=== PATIENT | female | born 1990 | race Caucasian/White ===

== ENCOUNTER 2016-10-20 12:03 | Emergency (ER) | payer OTHER ==
[~2016-10-20] VITALS: Ht 165.1 cm; Wt 75.0 kg
[~2016-10-20 12:03] MED LIST: AMBIEN 10MG10 MG PO; ASPIRIN 32325 MG/TAB PO; BENADRYL25 M2 PO; DEPO-PROVE150 MG/1 M IM; FLAGYL500 MG PO; KLONOPIN 1MG1 MG PO; MELATONIN5 M1 SL; MINIPRESS2 MG PO; NEURONTIN100 MG/CAP PO; NEURONTIN600 MG/TAB PO; PERCOCET 325 MG1 TA2 PO; REMERON 15M15 MG/TA1 PO; ROXICODONE 55 MG/TAB PO; SEROQUEL 2525 MG/TAB PO; TOPROL XL 25MG25 MG PO; VISTARIL50 MG PO
[2016-10-20 12:12] VITALS: BP 112/76; TEMP 97.9
[2016-10-20] MEDS ORDERED: TYLENOL W/COD1 UDTAB PO (13:05)
[2016-10-20 13:28] VITALS: PULSE 75
== END 2016-10-20 13:29 | disposition home or self-care (01) ==
LOC: COL.ER 12:03
DX: S90.32XA Contusion of left foot, initial encounter (principal); S90.02XA Contusion of left ankle, initial encounter; Z89.432 Acquired absence of left foot; W10.9XXA Fall (on) (from) unspecified stairs and steps, initial encounter; Y92.009 Unspecified place in unspecified non-institutional (private) residence as the place of occurrence of the external cause

== ENCOUNTER 2017-08-27 16:58 | Emergency (ER) | payer OTHER ==
[~2017-08-27] VITALS: Ht 160 cm; Wt 85.0 kg
[~2017-08-27 16:58] MED LIST changes: +TYLENOL W/COD1 UDTAB PO
[2017-08-27 17:00] VITALS: BP 129/85; PULSE 98; TEMP 98.8
[2017-08-27] MEDS ORDERED: ZITHROMAX 250M250 MG PO (17:37)
[2017-08-27] MEDS ORDERED: PREDNISONE20 MG PO (17:37)
== END 2017-08-27 17:48 | disposition home or self-care (01) ==
LOC: COL.ER 16:58
DX: H91.91 Unspecified hearing loss, right ear (principal); I10 Essential (primary) hypertension; F17.210 Nicotine dependence, cigarettes, uncomplicated; Z79.52 Long term (current) use of systemic steroids
CPT/HCPCS: J7512

== ENCOUNTER 2017-12-04 18:17 | Emergency (ER) | payer OTHER ==
[~2017-12-04] VITALS: Ht 165.1 cm; Wt 85.5 kg
[~2017-12-04 18:17] MED LIST changes: +PREDNISONE20 MG PO; +ZITHROMAX 250M250 MG PO
[2017-12-04 18:21] VITALS: BP 125/74; PULSE 90; TEMP 98.3
[2017-12-04] MEDS ORDERED: AMOXICILLIN 50500 MG PO (18:41)
== END 2017-12-04 18:49 | disposition home or self-care (01) ==
LOC: COL.ER 18:17
DX: K02.9 Dental caries, unspecified (principal); I10 Essential (primary) hypertension; F17.210 Nicotine dependence, cigarettes, uncomplicated

== ENCOUNTER 2018-09-16 13:17 | Emergency (ER) | payer OTHER ==
[~2018-09-16] VITALS: Ht 165.1 cm; Wt 90.1 kg
[~2018-09-16 13:17] MED LIST changes: +AMOXICILLIN 50500 MG PO
[2018-09-16 13:21] VITALS: TEMP 99.2
[2018-09-16 14:15] LABS: BASO # 0.1 (0.0-0.2); BASO % 1.5 % (0.0-2.0); EOS # 0.2 (0.0-0.7); EOS % 2.1 % (0-4.0); GRAN # 4.4 (1.4-6.5); GRAN % 61.2 % (42.2-75.2); HEMATOCRIT 43.8 % (37.0-47.0); HEMOGLOBIN 14.7 g/dl (12.5-16.0); LYMPH # 1.8 (1.2-3.4); LYMPH % 25.3 % (20.0-51.0); MEAN CELL VOLUME 98 fl (80.0-100.0); MEAN CORPUSCULAR HEMOGLOBIN 33 pg (27.0-31.0); MEAN CORPUSCULAR HGB CONC 34 g/dl (33.0-37.0); MEAN PLATELET VOLUME 10.2 fl (7.4-10.4); MONO # 0.7 (0.1-0.6); MONO % 9.6 % (1.7-9.3); PLATELET COUNT 334 K/mm3 (130-400); RED BLOOD COUNT 4.49 M/mm3 (4.10-5.30); REDCELL DISTRIBUTION WIDTH-CV 12.3 % (11.5-14.5)
[2018-09-16 14:40] LABS: COLLECTION METHOD CLEAN CATCH
[2018-09-16 14:47] LABS: MUCOUS Present /lpf; PH 7 (5-8); URINE APPEARANCE Clear; URINE BACTERIA None Seen /hpf; URINE BILIRUBIN Negative (NEGATIVE); URINE BLOOD 3+ (NEGATIVE); URINE COLOR Yellow; URINE GLUCOSE Negative (NEGATIVE); URINE KETONE Trace (NEGATIVE); URINE LEUKOCYTE ESTERASE 1+ (NEGATIVE); URINE NITRATE Negative (NEGATIVE); URINE PROTEIN(semi-quant) 1+ (NEGATIVE); URINE RBC >50 /hpf; URINE UROBILINOGEN Negative (NEGATIVE)
[2018-09-16 15:21] LABS: ALBUMIN 4.2 gm/dL (3.5-5.0); BILIRUBIN,TOTAL 0.6 mg/dL (0.0-1.0); CALCIUM 9.4 mg/dL (8.4-10.2); CREATININE, serum 0.85 (0.52-1.25); POTASSIUM 3.9 mmol/L (3.4-5.0); TOTAL PROTEIN 7.9 gm/dL (6.4-8.2)
[2018-09-16] MEDS ORDERED: MACROBID 1100 MG/CAP PO (15:26)
[2018-09-16 15:33] VITALS: BP 136/98; PULSE 81
== END 2018-09-16 15:34 | disposition home or self-care (01) ==
LOC: COL.ER 13:17
PROVIDERS: Family Medicine; Nurse Practitioner Primary Care
DX: N39.0 Urinary tract infection, site not specified (principal); R11.2 Nausea with vomiting, unspecified; I10 Essential (primary) hypertension; F17.210 Nicotine dependence, cigarettes, uncomplicated; Z89.432 Acquired absence of left foot
CPT/HCPCS: J2405; J7030

== ENCOUNTER 2019-11-12 21:33 | Emergency (ER) | payer OTHER ==
[~2019-11-12] VITALS: Ht 162.6 cm; Wt 88.6 kg
[~2019-11-12 21:33] MED LIST changes: +MACROBID 1100 MG/CAP PO
[2019-11-12 21:51] VITALS: BP 131/93; PULSE 87; TEMP 98
== END 2019-11-12 22:35 | disposition home or self-care (01) ==
LOC: COL.ER 21:33
DX: S90.31XA Contusion of right foot, initial encounter (principal); F17.210 Nicotine dependence, cigarettes, uncomplicated; Z98.890 Other specified postprocedural states; Y92.009 Unspecified place in unspecified non-institutional (private) residence as the place of occurrence of the external cause; W26.8XXA Contact with other sharp object(s), not elsewhere classified, initial encounter

== ENCOUNTER 2020-10-24 13:01 | Outpatient (CLI) | payer OTHER ==
[~2020-10-24] VITALS: Ht 165.1 cm; Wt 84.5 kg
--- NOTE | 2020-10-24 12:45 | NUR ---
Patient arrives ambulatory with complaints of "dizziness, seeing some spots, nausea, feeling hot and cold, a quick chest pain that is now gone and headache". Patient reports diarrhea x1 week. Patient denies contractions, ROM or vaginal bleeding. Reports normal movement. Patient assisted to bed and VS obtained. EFM explained and placed. Dr. Zeng on unit prior to arrival, orders for labs and monitoring. Assessment completed. Lab at bedside. Patient updated on plan of care. 1305- Maternal heart rate tracing as patient sits up in bed to vomit x1. Physician ontified, patient does not feel like she needs IVF at this time. Labs pending.
[2020-10-24 13:00] VITALS: BP 116/75; PULSE 76; TEMP 98.2
[2020-10-24 13:23] LABS: COLLECTION METHOD CLEAN CATCH
[2020-10-24 13:25] LABS: BASO % 0.5 % (0.0-2.0); EOS # 0.1 (0.0-0.7); EOS % 0.8 % (0-4.0); GRAN # 5.7 (1.4-6.5); GRAN % 76.3 % (42.2-75.2); HEMOGLOBIN 11.6 g/dl (12.5-16.0); LYMPH # 1.2 (1.2-3.4); LYMPH % 15.8 % (20.0-51.0); MEAN CELL VOLUME 90 fl (80.0-100.0); MEAN CORPUSCULAR HEMOGLOBIN 31 pg (27.0-31.0); MEAN CORPUSCULAR HGB CONC 35 g/dl (33.0-37.0); MEAN PLATELET VOLUME 10.2 fl (7.4-10.4); MONO # 0.5 (0.1-0.6); MONO % 6.2 % (1.7-9.3); PLATELET COUNT 223 K/mm3 (130-400); RED BLOOD COUNT 3.72 M/mm3 (4.10-5.30); REDCELL DISTRIBUTION WIDTH-CV 12.9 % (11.5-14.5)
[2020-10-24 13:26] LABS: HEMATOCRIT 33.4 % (37.0-47.0)
[2020-10-24 13:30] LABS: MUCOUS Present /lpf; PH 7 (5-8); URINE APPEARANCE Hazy; URINE BACTERIA Rare /hpf; URINE BILIRUBIN Negative (NEGATIVE); URINE BLOOD Negative (NEGATIVE); URINE COLOR Yellow; URINE GLUCOSE Negative (NEGATIVE); URINE KETONE Trace (NEGATIVE); URINE LEUKOCYTE ESTERASE Negative (NEGATIVE); URINE NITRATE Negative (NEGATIVE); URINE PROTEIN(semi-quant) Negative (NEGATIVE); URINE RBC 0-2 /hpf; URINE UROBILINOGEN Negative (NEGATIVE); URINE WBC 0-2 /hpf
[2020-10-24 13:55] LABS: ALBUMIN 3.3 gm/dL (3.5-5.0); BILIRUBIN,TOTAL 0.1 mg/dL (0.0-1.0); CALCIUM 8.8 mg/dL (8.4-10.2); CREATININE, serum 0.7 (0.52-1.25); TOTAL PROTEIN 6.8 gm/dL (6.4-8.2)
[2020-10-24 14:00] VITALS: BP 120/69; PULSE 75
[2020-10-24 14:22] LABS: TRICYCLIC ANTIDEPRESS URINE NEGATIVE
--- NOTE | 2020-10-24 14:30 | NUR ---
Blood glucose 73. Patient states she feels a bit better after eating. See physician notification.
[2020-10-24 14:42] VITALS: BP 125/78; PULSE 63; TEMP 98.3
== END 2020-10-24 14:55 | disposition home or self-care (01) ==
LOC: LDRO 13:01
PROVIDERS: Obstetrics & Gynecology
DX: O21.2 Late vomiting of pregnancy (principal); O26.853 Spotting complicating pregnancy, third trimester; O26.893 Other specified pregnancy related conditions, third trimester; R42 Dizziness and giddiness; Z3A.35 35 weeks gestation of pregnancy

== ENCOUNTER 2020-11-18 08:35 | Inpatient (IN) | payer OTHER ==
[~2020-11-18] VITALS: Ht 165.1 cm; Wt 85.9 kg
[2020-11-18] VITALS (16 sets, daily range): BP systolic 86–125; BP diastolic 42–81; PULSE 49–94; TEMP 97.6–98.3
[2020-11-18] MEDS ORDERED: LEXAPRO 10MG10 MG PO (09:51)
[2020-11-18 09:54] LABS: BASO % 0.7 % (0.0-2.0); EOS # 0.1 (0.0-0.7); EOS % 1.3 % (0-4.0); GRAN # 4.2 (1.4-6.5); GRAN % 68.4 % (42.2-75.2); HEMATOCRIT 32.6 % (37.0-47.0); LYMPH # 1.3 (1.2-3.4); LYMPH % 21.2 % (20.0-51.0); MEAN CELL VOLUME 91 fl (80.0-100.0); MEAN CORPUSCULAR HEMOGLOBIN 31 pg (27.0-31.0); MEAN CORPUSCULAR HGB CONC 34 g/dl (33.0-37.0); MEAN PLATELET VOLUME 10.5 fl (7.4-10.4); MONO # 0.5 (0.1-0.6); MONO % 8.1 % (1.7-9.3); PLATELET COUNT 194 K/mm3 (130-400); RED BLOOD COUNT 3.58 M/mm3 (4.10-5.30); REDCELL DISTRIBUTION WIDTH-CV 13.1 % (11.5-14.5)
[2020-11-18 10:12] LABS: TRICYCLIC ANTIDEPRESS URINE NEGATIVE
--- NOTE | 2020-11-18 10:17 | NUR ---
Initial visit; Patient thanked Server for offering congratulations for the of her daughter. Server thanked family for choosing [facility].
--- NOTE | 2020-11-18 12:10 | NUR ---
Surgicel powder added to field in sterile fashion per verbal order. Lot # [id number]; Exp 2021-12-27.
[2020-11-19 01:30] VITALS: BP 111/68; PULSE 60; TEMP 98.1
[2020-11-19 08:00] VITALS: BP 128/69; PULSE 46
[2020-11-19] MEDS ORDERED: MOTRIN 800800 MG/TAB PO (08:08)
[2020-11-19] MEDS ORDERED: PERCOCET 325 MG1 TA2 PO (08:08)
[2020-11-19] MEDS ORDERED: LEXAPRO 10MG10 MG PO (08:12)
--- NOTE | 2020-11-19 09:35 | NUR ---
Information Security Officer responded to OB consult for patient who has a history of drug use and no custody of her other child. Patient's fiance and father of baby, Rudy (ph#[phone]) is present for the second half of assessment. Patient lives in [place] with Rudy and his three children, ages 14, 6, and 4. Patient states she has another daughter, Kailey age 9 who she does not have custody of. Patient states she lost custody of Kailey after making several "bad choices" and now Kailey lives in [place] with patient's parents. Patient states she is not allowed to have any contact with Kailey, which makes if difficult to have any contact with her parents. Patient reports a history of drug use but advised she has been clean for about 5 years. Patient advised that she has been to inpatient/outpatient treatement several times, but what helped her quit for good was meeting Rudy and his kids. Patient states she and Rudy are engaged to be . 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 CAMERON inquired about patient's history of mental health and patient advised she reached out to her OB provider about getting started on an antidepressant about a week ago due to her history of post depression. Patient declined to have any outpatient counseling set up for her when CAMERON offered. Patient advised that she has all supplies needed for baby and feels good about returning home, hoping she can discharge home today. Patient plans to breastfeed and feels this is going well. Patient has not applied for WIC as she isn't sure she would qualify. CAMERON provided a [facility] Resource Guide. Patient was negative for illegal drugs upon admission and during . Cord Blood Pending. Due to patient's history, CAMERON made a report to Child Protective Services (intake #[id number]). CAMERON collaborated the above information to RN and Dr. Gonzalez.
--- NOTE | 2020-11-19 16:32 | NUR ---
1450 DISCHARGE INSTRUCTIONS REVIEWED WITH PATIENT. PATIENT VERBALIZED UNDERSTANDING. PATIENT WILL GATHER PERSONAL BELONGINGS. 1520 ALL PERSONAL BELONGINGS GATHERED FROM PATIENT ROOM. PATIENT LEFT IN WHEELCHAIR IN NO APPARENT DISTRESS AND ACCOMPANIED BY THIS RN.
--- NOTE | 2020-11-24 09:11 | NUR ---
Patient's infant's cord blood was negative for illegal drugs in system.
== END 2020-11-19 15:20 | disposition home or self-care (01) | DRG 787 ==
LOC: OB
PROVIDERS: ADMIT Obstetrics & Gynecology
PROC: 10D00Z1 Extraction of Products of Conception, Low, Open Approach (ICD-10-PCS; principal; 2020-11-18)
DX: O34.211 Maternal care for low transverse scar from previous cesarean delivery (principal); O98.42 Viral hepatitis complicating childbirth; Z3A.39 39 weeks gestation of pregnancy; Z37.0 Single live birth; B18.2 Chronic viral hepatitis C
CPT/HCPCS: J0690; J1100; J1885; J2370; J2405; J2590; J7120

== ENCOUNTER 2021-01-24 15:03 | Emergency (ER) | payer OTHER ==
[~2021-01-24] VITALS: Ht 162.6 cm; Wt 77.3 kg
[~2021-01-24 15:03] MED LIST changes: +LEXAPRO 10MG10 MG PO; +MOTRIN 800800 MG/TAB PO
[2021-01-24 17:20] VITALS: BP 120/61; PULSE 80
== END 2021-01-24 17:24 | disposition home or self-care (01) ==
LOC: COL.ER 15:03
DX: S93.401A Sprain of unspecified ligament of right ankle, initial encounter (principal); W10.9XXA Fall (on) (from) unspecified stairs and steps, initial encounter